=== PATIENT | female | born 1975 | race Caucasian/White ===

== ENCOUNTER 2018-07-22 09:29 | Emergency (ER) | payer MEDICAID ==
[~2018-07-22] VITALS: Ht 175.3 cm; Wt 106.8 kg
[2018-07-22 09:35] VITALS: Ht 175.3 cm; Wt 106.8 kg
[2018-07-22] MEDS ORDERED: AMOXICILLIN500 M1 PO (09:47)
[2018-07-22] MEDS ORDERED: VOLTAREN75 MG PO (09:47)
[2018-07-22 10:02] VITALS: BP 126/80
== END 2018-07-22 10:03 | disposition home or self-care (01) ==
LOC: D.ER 09:29
DX: K02.9 Dental caries, unspecified (principal); K04.7 Periapical abscess without sinus; K08.89 Other specified disorders of teeth and supporting structures